=== PATIENT | male | born 1985 | race American Indian/Alaskan Native ===

== ENCOUNTER 2018-02-22 18:56 | Emergency (ER) | payer SELFPAY ==
[2018-02-22 19:05] VITALS: BP 161/107
--- NOTE | 2018-02-22 20:24 | XRay Report ---
FINAL REPORT EXAM: XR KNEE 3V LT HISTORY: pain/swelling r/t injury COMPARISON: None available. FINDINGS: Three views of the left knee obtained. Prominent suprapatellar effusion. No definite fracture line identified. Bony structures are intact. Joint spaces are preserved. Superior patellar enthesophyte. IMPRESSION: No acute bony abnormality. Prominent suprapatellar effusion concerning for soft tissue injury. Bony contusive injury not excluded by plain film.
--- NOTE | 2018-02-22 21:43 | Emergency Department Report ---
ED Lower Extremity HPI - General Chief Complaint: Extremity Injury, Lower Stated Complaint: KNEE PAIN Time Seen by Provider: 02/22/18 21:22 Source: patient Mode of arrival: Ambulatory Limitations: No Limitations - History of Present Illness Initial Comments: 32M PMH none presents with complaint of left knee pain x4 days. Pt states he jumped while playing basketball and when he landed on ground felt sudden pain on medial aspect of left knee. Pt denies any fall or other injuries.Pt is ambulatory without assistance, states knee is aching mildly when he walks. Pain 12/09. MD Complaint: knee injury (left knee) Onset/Timin -: days(s) Injury: Knee: Left (left knee) Place: street/outdoors Severity: moderate Worsens With: palpation Associated Symptoms: snap/pop sensation, swelling, ambulatory - Related Data Previous Rx's Medication Instructions Recorded Last Taken Type Amoxicillin [Trimox CAP] 500 mg PO Q8H #28 capsule 11/16/13 Unknown Rx HYDROcodone/APAP 5-325 [Pyrites 1 - 2 each PO Q6HR PRN #12 tablet 11/16/13 Unknown Rx 5/325 mg] Ibuprofen [Motrin] 800 mg PO Q8H PRN #12 tablet 11/16/13 Unknown Rx Acetaminophen/Codeine [Tylenol 1 tab PO Q6H PRN #4 tab 02/22/18 Unknown Rx /Codeine # 3 tab] Ibuprofen [Motrin] 800 mg PO Q8HR PRN #25 tablet 02/22/18 Unknown Rx Allergies Allergy/AdvReac Type Severity Reaction Status Date / Time No Known Allergies Allergy Unverified 11/16/13 09:20 ED Review of Systems ROS: Stated complaint: KNEE PAIN Other details as noted in HPI Constitutional: denies: chills, fever Eyes: denies: eye pain, eye discharge, vision change ENT: denies: ear pain, throat pain Respiratory: denies: cough, shortness of breath, wheezing Cardiovascular: denies: chest pain, palpitations Endocrine: no symptoms reported Gastrointestinal: denies: abdominal pain, nausea, diarrhea Genitourinary: denies: urgency, dysuria Musculoskeletal: as per HPI, arthralgia. denies: back pain, joint swelling Skin: denies: rash, lesions Neurological: denies: headache, weakness, paresthesias Psychiatric: denies: anxiety, depression Hematological/Lymphatic: denies: easy bleeding, easy bruising ED Past Medical Hx - Past Medical History Previous Medical History?: No - Surgical History Past Surgical History?: No - Social History Smoking Status: Never Smoker Substance Use Type: None - Medications Home Medications: Home Medications Medication Instructions Recorded Confirmed Last Taken Type Amoxicillin [Trimox CAP] 500 mg PO Q8H #28 capsule 11/16/13 Unknown Rx HYDROcodone/APAP 5-325 [Pyrites 1 - 2 each PO Q6HR PRN #12 tablet 11/16/13 Unknown Rx 5/325 mg] Ibuprofen [Motrin] 800 mg PO Q8H PRN #12 tablet 11/16/13 Unknown Rx Acetaminophen/Codeine [Tylenol 1 tab PO Q6H PRN #4 tab 02/22/18 Unknown Rx /Codeine # 3 tab] Ibuprofen [Motrin] 800 mg PO Q8HR PRN #25 tablet 02/22/18 Unknown Rx ED Physical Exam - General Limitations: No Limitations General appearance: alert, in no apparent distress - Head Head exam: Present: atraumatic, normocephalic - Eye Eye exam: Present: normal appearance, PERRL, EOMI - ENT ENT exam: Present: mucous membranes moist - Neck Neck exam: Present: normal inspection - Respiratory Respiratory exam: Present: normal lung sounds bilaterally. Absent: respiratory distress - Cardiovascular Cardiovascular Exam: Present: regular rate, normal rhythm. Absent: systolic murmur, diastolic murmur, rubs, gallop - GI/Abdominal GI/Abdominal exam: Present: soft, normal bowel sounds - Rectal Rectal exam: Present: deferred - Extremities Exam Extremities exam: Present: normal inspection - Expanded Lower Extremity Exam Left Knee exam: Present: normal inspection, full ROM, swelling, full knee extension Lower Leg exam: Present: normal inspection, full ROM Ankle exam: Present: normal inspection, full ROM Foot/Toe exam: Present: normal inspection, full ROM Neuro vascular tendon exam: Present: no vascular compromise Gait: Positive: antalgic 1 - slight pain here - Back Exam Back exam: Present: normal inspection - Neurological Exam Neurological exam: Present: alert, oriented X3, CN II-XII intact, normal gait - Psychiatric Psychiatric exam: Present: normal affect, normal mood - Skin Skin exam: Present: warm, dry, intact, normal color. Absent: rash ED Course Vital Signs 02/22/18 19:02 Temperature 99 F Pulse Rate 81 Respiratory 18 Rate Blood Pressure 161/107 O2 Sat by Pulse 99 Oximetry Critical care attestation.: If time is entered above; I have spent that time in minutes in the direct care of this critically ill patient, excluding procedure time. ED Disposition Clinical Impression: Left knee sprain Qualifiers: Encounter type: initial encounter Involved ligament of knee: medial collateral ligament Qualified Code(s): S83.412A - Sprain of medial collateral ligament of left knee, initial encounter Disposition: TO HOME OR SELFCARE Is pt being admited?: No Does the pt Need Aspirin: No Condition: Stable Instructions: Knee Effusion (ED), Knee Pain (ED), RICE Therapy (ED) Prescriptions: Acetaminophen/Codeine [Tylenol /Codeine # 3 tab] 1 tab PO Q6H PRN #4 tab PRN Reason: Pain , Severe (7-10) Ibuprofen [Motrin] 800 mg PO Q8HR PRN #25 tablet PRN Reason: Pain , Severe (7-10) Referrals: NUPUR GALVAN MD [Staff Physician] - 3-5 Days [facility] [Provider Group] - 3-5 Days Time of Disposition: 21:44
== END 2018-02-22 21:45 | disposition home or self-care (01) ==
LOC: ED 18:56
DX: S83.412A Sprain of medial collateral ligament of left knee, initial encounter (principal); Z79.899 Other long term (current) drug therapy; X58.XXXA Exposure to other specified factors, initial encounter; Y93.67 Activity, basketball; Y92.89 Other specified places as the place of occurrence of the external cause; Y99.8 Other external cause status
CPT/HCPCS: 99283